=== PATIENT | male | born 1945 | race Caucasian/White ===

== ENCOUNTER 2017-01-28 14:46 | Emergency (ER) | payer OTHER ==
[2017-01-28 14:59] VITALS: RESP 20; O2SAT 95
[2017-01-28 15:15] LABS: COLOR YELLOW; LEUKOCYTE ESTERASE,URINE TRACE (NEGATIVE); NITRITE,URINE NEGATIVE (NEGATIVE)
--- NOTE | 2017-01-28 15:18 | EDPHY ---
H & P Time Seen by Provider: 01/28/17 15:08 HPI/ROS: 71-year-old male presents complaining of urinary urgency and frequency that began last night. He states it feels similar to a prior urinary tract infection , that he was treated with Levaquin for several years ago. He has had some chills he denies fevers. He denies abdominal or flank pain. No nausea no vomiting no diarrhea. Review of systems General no fever positive chills no weakness HEENT no eye pain no eye discharge. No eye redness, no sore throat Respiratory no cough, no shortness of breath Cardiac no chest pain, no peripheral edema GI no abdominal pain, no diarrhea, no constipation, no nausea, no vomiting no flank pain, no hematuria, positive dysuria Musculoskeletal no myalgias, no joint pain Heme no easy bruising, no easy bleeding Endo no polyuria, no polydipsia Skin no rashes, no pruritus Neuro no syncope, no dizziness, no headaches Psych is no suicidal ideation, no homicidal ideation Past Medical/Surgical History: GERD, hypertension, gout Social History: No alcohol or drug use Smoking Status: Former smoker Physical Exam: 71-year-old male Alert and oriented in no acute distress nontoxic appearance, afebrile Atraumatic normocephalic Neck no JVD Lungs clear to auscultation, no respiratory distress Heart regular rate and rhythm Extremities no cyanosis clubbing edema Constitutional: Initial Vital Signs Temperature (C) 37.4 C 01/28/17 14:54 Heart Rate 107 H 01/28/17 14:54 Respiratory Rate 20 01/28/17 14:54 Blood Pressure 173/95 H 01/28/17 14:54 O2 Sat (%) 95 01/28/17 14:54 Allergies/Adverse Reactions: No Known Allergies Allergy (Unverified 01/28/17 14:52) Home Medications: Medication Instructions Recorded Allopurinol 01/28/17 Cephalexin 500 mg PO BID #14 tablet 01/28/17 PRILOSEC 01/28/17 Phenazopyridine HCl 200 mg PO TID #6 tab 01/28/17 [Phenazopyridine] Welchol 01/28/17 Medical Decision Making ED Course/Re-evaluation: Patient seen and evaluated for frequent and urgent urination. Physical exam benign Urinalysis positive for WBCs positive for leuk Estrace positive for bacteria Urine culture pending Differential diagnosis UTI, urethritis, pyelonephritis Impression UTI Plan Cephalexin Phenazopyridine Follow up with PCP in [place], patient returning to [place] tomorrow January 29 - Data Points Laboratory Results: 01/28/17 15:05 Urine Color YELLOW Urine Appearance HAZY Urine pH 5.0 (5.0-7.5) Ur Specific [place] 1.025 (1.002-1.030) Urine Protein NEGATIVE (NEGATIVE) Urine Ketones NEGATIVE (NEGATIVE) Urine Blood 1+ H (NEGATIVE) Urine Nitrate NEGATIVE (NEGATIVE) Urine Bilirubin NEGATIVE (NEGATIVE) Urine Urobilinogen 0.2 EU EU (0.2-1.0) Ur Leukocyte Esterase TRACE H (NEGATIVE) Urine RBC 15-25 /hpf H /hpf (0-3) Urine WBC 5-10 /hpf H /hpf (0-3) Ur Epithelial Cells TRACE /lpf /lpf (NONE-1+) Ur Renal Epithelial Cell OCCASIONAL /hpf H /hpf (NONE SEEN) Urine Bacteria 1+ /hpf H /hpf (NONE SEEN) Urine Mucus 1+ /lpf /lpf (NONE-1+) Urine Glucose TRACE H (NEGATIVE) Departure - Departure Disposition: Home, Routine, Self-Care Clinical Impression: Urinary tract infection Condition: Good Instructions: Urinary Tract Infection in Men (ED) Referrals: UNK,UNK [Other] - As per Instructions Prescriptions: Cephalexin 500 mg PO BID #14 tablet Phenazopyridine HCl [Phenazopyridine] 200 mg PO TID #6 tab
[2017-01-28 15:23] LABS: BACTERIA 1+ /hpf (NONE SEEN); MUCUS 1+ /lpf (NONE-1+); RBC,URINE 15-25 /hpf (0-3); RENAL EPITHELIAL CELLS OCCASIONAL /hpf (NONE SEEN)
[2017-01-28] MEDS ORDERED: CEPHALEXIN 500MG PREPACK#4 BTL TAKEHOME ONE (15:38)
[2017-01-28] MEDS ORDERED: PHENAZOPYRIDINE HCL 200 MG TAB PO ONE (15:39)
[2017-01-28 16:03] VITALS: BP 165/93; PULSE 98; TEMP 99
== END 2017-01-28 16:02 | disposition home or self-care (01) ==
LOC: CED 14:46
DX: N39.0 Urinary tract infection, site not specified (principal); B96.1 Klebsiella pneumoniae [K. pneumoniae] as the cause of diseases classified elsewhere; I10 Essential (primary) hypertension; Z87.891 Personal history of nicotine dependence
CPT/HCPCS: 81003-PO; 81015-PO